=== PATIENT | female | born 1995 | race African-American/Black ===

== ENCOUNTER 2016-11-14 02:15 | Emergency (ER) | payer OTHER ==
[~2016-11-14] VITALS: Ht 162.6 cm; Wt 106.8 kg
[~2016-11-14 02:15] MED LIST: AIRBORNE; MOTRIN PM; MUCINEX
[2016-11-14 04:11] VITALS: BP 137/82
== END 2016-11-14 04:18 | disposition home or self-care (01) ==
LOC: EMS 02:17
DX: J06.9 Acute upper respiratory infection, unspecified (principal); F17.210 Nicotine dependence, cigarettes, uncomplicated
CPT/HCPCS: 71020; 99284